=== PATIENT | female | born 1995 | race Two or more races ===

== ENCOUNTER 2018-02-20 22:16 | Emergency (ER) | payer OTHER ==
[~2018-02-20] VITALS: Ht 167.6 cm; Wt 56.7 kg
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
[2018-02-20] MEDS ORDERED: ONDANSETRON 4 MG TAB.RAPDIS ONE (23:15)
[2018-02-20] MEDS ORDERED: ONDANSETRON 4 MG TAB.RAPDIS SL ONE (23:30)
--- NOTE | 2018-02-21 03:45 | NUR ---
pt boyfriend at bedside. Patient is awake and alert to self, day, and place. pt ambulatory with a steady gait.
--- NOTE | 2018-02-21 04:20 | NUR ---
pt ok to discharge home per dr negron. Patient discharged to home in stable condition. Written and verbal after care instructions given. Patient verbalizes understanding of instruction.Patient is awake and alert to self, day, and place. pt ambulatory with a steady gait
[2018-02-21 04:41] VITALS: BP 129/75
== END 2018-02-21 04:20 | disposition home or self-care (01) ==
LOC: ER 22:19 → EDBD 22:19 → ER 02-21 04:20
DX: F10.129 Alcohol abuse with intoxication, unspecified (principal); R11.2 Nausea with vomiting, unspecified
CPT/HCPCS: A4606; Q0162; Z7610